=== PATIENT | female | born 1990 | race Caucasian/White ===

== ENCOUNTER 2019-12-25 13:20 | Emergency (ER) | payer OTHER | END 2019-12-25 14:00 | disposition left against medical advice (07) | LOC: M.ERS 13:20 | DX: Z53.21 Procedure and treatment not carried out due to patient leaving prior to being seen by health care provider (principal) ==

== ENCOUNTER 2019-12-30 10:38 | Emergency (ER) | payer OTHER ==
[~2019-12-30] VITALS: Ht 152.4 cm; Wt 51.7 kg
[2019-12-30] MEDS ORDERED: METHADONE10 MG/1 M2 (10:52)
[2019-12-30] MEDS ORDERED: ZPAK PO (11:14)
[2019-12-30] MEDS ORDERED: MEDROLDOSEPACK PO (11:14)
[2019-12-30] MEDS ORDERED: PROAIR HFA8.5 GM INH (11:14)
[2019-12-30 11:18] LABS: INFLUENZA A ANTIGEN Negative (Negative); INFLUENZA B ANTIGEN Negative (Negative)
[2019-12-30 11:40] VITALS: BP 134/73
== END 2019-12-30 11:41 | disposition home or self-care (01) ==
LOC: M.ERS 10:38
PROVIDERS: Family Medicine
DX: J20.9 Acute bronchitis, unspecified (principal); Z90.49 Acquired absence of other specified parts of digestive tract; Z98.890 Other specified postprocedural states; Z88.5 Allergy status to narcotic agent